=== PATIENT | female | born 1990 | race American Indian/Alaskan Native ===

== ENCOUNTER 2017-02-10 14:51 | Emergency (ER) | payer MEDICAID ==
[2017-02-10 14:53] VITALS: BMI 33.6
[2017-02-10 14:57] VITALS: BP 118/79; PULSE 108; TEMP 98.3
--- NOTE | 2017-02-10 15:14 | ED PDOC ---
Arrival/HPI - General Chief Complaint: ENT Problem Time Seen by Provider: 02/10/17 15:10 Historian: Patient - History of Present Illness Narrative History of Present Illness (Text): 02/10/17 15:11 26 yo F is 16 wks , c/o sore throat, R ear pain, nasal congestion, runny nose, bodyaches, chills, and sweats x 3 days. Has been taking tylenol with no relief. Denies any fever, SOB, CP, N/V, abdominal pain, vaginal bleeding , recent travel, headache. Has no other complaints. PMD [place] Past Medical History - Provider Review Nursing Documentation Reviewed: Yes - Infectious Disease Hx of Infectious Diseases: None - Pulmonary Hx Asthma: Yes - Neurological Other/Comment: pins and needles x 1 yr throughout body - HEENT Hx HEENT Disorder: Yes (eyeglasses) - Musculoskeletal/Rheumatological Hx Falls: No - Gastrointestinal Hx Gastrointestinal Disorders: Yes (constipation) - Psychiatric Hx Substance Use: No - Anesthesia Hx Anesthesia: No Family/Social History - Physician Review Nursing Documentation Reviewed: Yes Family/Social History: No Known Family HX Smoking Status: Current Some Days Smoker Hx Alcohol Use: No Hx Substance Use: No Allergies/Home Meds Allergies/Adverse Reactions: Allergies No Known Allergies Allergy (Verified 09/01/16 07:26) Home Medications: Home Meds Medication Instructions Recorded Confirmed Albuterol HFA [Ventolin HFA 90 1 puff IH QID PRN 02/10/17 02/10/17 mcg/actuation (8 g)] Review of Systems - Review of Systems Constitutional: Normal, Fatigue (related to ), Weight Change (related to ). absent: Fevers ENT: Normal, Sore Throat, Rhinorrhea, Sinus Congestion. absent: Hearing Changes , Epistaxis Respiratory: Normal. absent: SOB, Cough, Sputum Musculoskeletal: Normal, Arthralgias. absent: Back Pain, Neck Pain Skin: Normal. absent: Rash, Pruritis, Skin Lesions Physical Exam Vital Signs Reviewed: Yes Vital Signs Temp Pulse Resp BP Pulse Ox 02/10/17 14:56 98.3 F 108 H 18 118/79 97 Temperature: Afebrile Blood Pressure: Normal Pulse: Tachycardic Respiratory Rate: Normal Appearance: Positive for: Well-Appearing, Non-Toxic, Comfortable Pain Distress: None Mental Status: Positive for: Alert and Oriented X 3 - Systems Exam Head: Present: Atraumatic, Normocephalic Pupils: Present: PERRL Extroacular Muscles: Present: EOMI Conjunctiva: Present: Normal. No: Injected Ears: Present: Normal, NORMAL TM, Normal Canal. No: Erythema, TM Bulging Mouth: Present: Moist Mucous Membranes Pharnyx: Present: Normal. No: ERYTHEMA, EXUDATE, Peritonsilar Swelling, Uvular Deviation Neck: Present: Normal Range of Motion. No: Meningeal Signs, MIDLINE TENDERNESS , Lymphadenopathy Respiratory/Chest: Present: Clear to Auscultation, Good Air Exchange. No: Respiratory Distress, Accessory Muscle Use, Wheezes, Rales, Rhonchi, Tachypneic Cardiovascular: Present: Regular Rate and Rhythm, Normal S1, S2. No: Murmurs Abdomen: No: Tenderness Back: Present: Normal Inspection. No: CVA Tenderness, Midline Tenderness Upper Extremity: Present: Normal Inspection, Normal ROM Lower Extremity: Present: Normal Inspection, Normal ROM Neurological: Present: GCS=15, CN II-XII Intact Skin: Present: Warm, Dry, Normal Color. No: Rashes Psychiatric: Present: Alert, Oriented x 3 Medical Decision Making ED Course and Treatment: 02/10/17 15:14 26 yo F is 16 wks , c/o sore throat, R ear pain, nasal congestion, runny nose, chills, and sweats x 3 days. Based on history and exam, likely viral illness, consider pharyngitis and sinusitis. Pt advised to take only Tylenol for pain and fever, drink plenty of fluids, stay in a cool environment due to the weather. Given Rx for zyrtec, as it is the only safe Rx medication she can take for her symptoms. Otherwise to f/u with pmd or OB in 1-2 days without fail. Instructed to Return to the ER at any time for any new or worsening symptoms. Pt verbalize understanding of diagnosis , treatment and plan, agrees with outpt follow up. 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 Disposition/Present on Arrival - Present on Arrival Any Indicators Present on Arrival: No History of DVT/PE: No History of Uncontrolled Diabetes: No Urinary Catheter: No History of Decub. Ulcer: No History Surgical Site Infection Following: None - Disposition Have Diagnosis and Disposition been Completed?: Yes Diagnosis: Viral illness Disposition: HOME/ ROUTINE Disposition Time: 15:19 Patient Plan: Discharge Patient Problems: Current Active Problems Problem Status Onset Viral illness Acute Condition: STABLE Discharge Instructions (ExitCare): Viral Syndrome (ED) Print Language: DANISH Additional Instructions: Follow up with pmd or OB in 1-2 days without fail. Take tylenol for fever and pain. Take prescription as prescribed. Drink plenty of fluids, bedrest and stay in a cool environment. Return to the ER at any time for any new or worsening symptoms. Prescriptions: Cetirizine HCl [Zyrtec] 10 mg PO DAILY #30 capsule Referrals: Eduardo Wall MD [Primary Care Provider] - Follow up with primary
[2017-02-10 15:32] VITALS: RESP 16; O2SAT 99
== END 2017-02-10 15:32 | disposition home or self-care (01) ==
LOC: ED 14:51
DX: O26.892 Other specified pregnancy related conditions, second trimester (principal); Z3A.16 16 weeks gestation of pregnancy; B34.9 Viral infection, unspecified